=== PATIENT | male | born 1985 | race Asian ===

== ENCOUNTER 2021-07-31 09:12 | Emergency (ER) | payer BC, OTHER ==
[~2021-07-31] VITALS: Ht 167.6 cm; Wt 90.7 kg
[2021-07-31 10:12] VITALS: BP 154/97
== END 2021-07-31 11:19 | disposition home or self-care (01) ==
LOC: ER 09:12
DX: R07.89 Other chest pain (principal); V43.52XA Car driver injured in collision with other type car in traffic accident, initial encounter; Y93.89 Activity, other specified; Y92.89 Other specified places as the place of occurrence of the external cause; Y99.8 Other external cause status
CPT/HCPCS: 71046; 93005